=== PATIENT | male | born 1985 | race African-American/Black ===

== ENCOUNTER 2018-03-02 03:11 | Emergency (ER) | payer SELFPAY ==
[2018-03-02] MEDS ORDERED: HYDROcodone/Acetaminophen 10/325 mg Tablet ONE (05:17)
[2018-03-02] MEDS ORDERED: Ibuprofen 200 MG TAB ONE (05:18)
[2018-03-02] MEDS ORDERED: AMOXicillin 250 MG CAP ONE (05:18)
== END 2018-03-02 05:41 | disposition home or self-care (01) ==
LOC: ERS 03:11
DX: K04.7 Periapical abscess without sinus (principal); K02.9 Dental caries, unspecified; K03.81 Cracked tooth
CPT/HCPCS: 99283

== ENCOUNTER 2020-11-21 18:31 | Emergency (ER) | payer OTHER, SELFPAY ==
[~2020-11-21 18:31] MED LIST: Iopamidol-370 76% 500 ML 1 ML ONE
[2020-11-21 19:36] LABS: Hemoglobin 14.6 g/dL (14.0-18.0); Mean Corpuscular HGB CONC 33.1 g/dL (32.0-36.0); Mean Corpuscular Volume 93.8 fL (78.0-98.0); RBC Distribution Width 11.1 % (11.5-14.5); Red Blood Cell (RBC) Count 4.69 mill/uL (4.70-6.10); White Blood Cell (WBC) Count 6.4 thou/uL (4.8-10.8)
[2020-11-21 19:52] LABS: ALT (SGPT) 15 U/L (8-55); AST (SGOT) 23 U/L (5-34); Albumin 4.1 g/dL (3.5-5.0); Alkaline Phosphatase 52 U/L (40-110); Anion Gap 15 mmol/L (10-20); BUN (Urea Nitrogen) 15 mg/dL (8.9-20.6); Bilirubin, Total 0.3 mg/dL (0.2-1.2); Calc. Creatinine Clearance 0 mL/min (70-130); Carbon Dioxide 23 mmol/L (22-29); Chloride 105 mmol/L (98-107); Globulin 3.1 g/dL (2.4-3.5); Glucose 88 mg/dL (70-105); Potassium 3.7 mmol/L (3.5-5.1); Protein, Total 7.2 g/dL (6.0-8.3); Sodium 139 mmol/L (136-145)
[2020-11-21 19:53] LABS: Eosinophils 9 % (0-10); Lymphocytes 34 % (21-51); MDiff Complete? YES; Mean Platelet Volume 9.3 fL (7.4-10.4); Monocytes 4 % (0-10); Neutrophil 39 % (42-75); Platelet Count 187 thou/uL (130-400); Platelet Morphology Comment Appears Adequate; RBC Morphology Normal; Reactive Lymphocytes 12 % (0-10)
[2020-11-21] MEDS ORDERED: Silver Sulfadiazine 50 GM TUBE ONE (20:34)
[2020-11-21 20:42] LABS: Bilirubin Negative (Negative); Blood, Urine Negative (Negative); Clarity Clear (Clear); Glucose, Urine (Dipstick) Normal (Negative); Ketone, Urine Negative (Negative); Leukocyte Negative Leu/uL (Negative); Nitrite Negative (Negative); Protein, Urine (Dipstick) Negative (Neg-Trace); Specific Gravity, Urine 1.027 (1.002-1.036); Urobilinogen Normal mg/dL (Less than 2); pH, Urine 6.5 (5.0-9.0)
== END 2020-11-21 21:06 | disposition home or self-care (01) ==
LOC: ERS 18:31
DX: S06.9X9A Unspecified intracranial injury with loss of consciousness of unspecified duration, initial encounter (principal); S30.1XXA Contusion of abdominal wall, initial encounter; S41.001A Unspecified open wound of right shoulder, initial encounter; S51.001A Unspecified open wound of right elbow, initial encounter; S51.801A Unspecified open wound of right forearm, initial encounter; S61.501A Unspecified open wound of right wrist, initial encounter; S51.002A Unspecified open wound of left elbow, initial encounter; S61.502A Unspecified open wound of left wrist, initial encounter; F17.290 Nicotine dependence, other tobacco product, uncomplicated; V23.4XXA Motorcycle driver injured in collision with car, pick-up truck or van in traffic accident, initial encounter
CPT/HCPCS: 36415; 70450; 71260; 72125; 74177; 80053; 81003; 85025; Q9967

== ENCOUNTER 2023-04-07 06:13 | Emergency (ER) | payer SELFPAY ==
[2023-04-07] MEDS ORDERED: Ketorolac Tromethamine 30 MG/ML VIAL ONE (06:30)
[2023-04-07] MEDS ORDERED: Morphine 4 MG/ML VIAL ONE (06:30)
[2023-04-07] MEDS ORDERED: Ondansetron ODT 4 MG TAB ONE (06:31)
== END 2023-04-07 06:42 | disposition home or self-care (01) ==
LOC: ERS 06:13
DX: K04.7 Periapical abscess without sinus (principal); F17.290 Nicotine dependence, other tobacco product, uncomplicated
CPT/HCPCS: 96372; 99282; J1885; J2270; Q0162